=== PATIENT | female | born 1955 | race Caucasian/White ===

== ENCOUNTER 2017-12-22 15:19 | Outpatient (CLI) | payer BC ==
--- NOTE | 2017-12-22 17:12 | BD ---
DEXA Bone Density study: 12/22/17 HISTORY: 62-year-old female with encounter for screening for osteoporosis, menopausal female. Lumbar Spine: BMD (g/cm2) T-Score: L1 1.219 +2.7 L2 1.610 +5.3 L3 1.735 +5.9 L4 1.437 +3.4 L1-L4 1.532 +4.3 Within normal limits with no increased risk for fracture, although may be falsely elevated because of sclerosis. Left femur: Femoral Neck: 1.066 2.0 Total Femur: 1.186 +2.0 Within normal limits with no increased risk for fracture. FRAX score ten year fracture risk for major osteoporotic fracture 4.8% and hip fracture less than 0.1 %. POS: [facility]
== END 2017-12-22 15:20 | disposition home or self-care (01) ==
LOC: BICMAMMO 15:19
PROVIDERS: ATTEND Obstetrics & Gynecology
DX: Z12.31 Encounter for screening mammogram for malignant neoplasm of breast (principal); Z13.820 Encounter for screening for osteoporosis; R92.1 Mammographic calcification found on diagnostic imaging of breast
CPT/HCPCS: 77063; 77067; 77080

== ENCOUNTER 2017-12-25 14:45 | Outpatient (CLI) | payer BC | END 2017-12-25 14:46 | disposition home or self-care (01) | LOC: ULT 14:45 | PROVIDERS: ATTEND Obstetrics & Gynecology | DX: R07.9 Chest pain, unspecified (principal); I08.1 Rheumatic disorders of both mitral and tricuspid valves | CPT/HCPCS: 93306 ==

== ENCOUNTER 2019-04-25 14:04 | Outpatient (CLI) | payer BC ==
--- NOTE | 2019-04-25 14:35 | RAD ---
Exam: Cervical spine 7 views including flexion and extension lateral views and right and left oblique views : HISTORY: Cervalgia FINDINGS: C7 and T1 are mostly obscured on the lateral view and the tip of the odontoid and upper C1 are partia lly obscured on the AP open mouth view. Generalized disc osteophytosis and facet arthrosis changes with uncovertebral hypertrophic changes with multilevel bilateral foraminal narrowing. This appears t o be most marked at C5-C6 and C6-C7 levels. No prevertebral soft tissue swelling. No acute fracture or dislocation. No abnormal translation between flexion and extension. IMPRESSION: Cervical spondylosis.
== END 2019-04-25 14:05 | disposition home or self-care (01) ==
LOC: BICRAD 14:04
PROVIDERS: ATTEND Physical Medicine & Rehabilitation
DX: M54.2 Cervicalgia (principal); M47.812 Spondylosis without myelopathy or radiculopathy, cervical region
CPT/HCPCS: 72052